=== PATIENT | male | born 1975 | race Caucasian/White ===

== ENCOUNTER 2025-06-01 11:52 | Outpatient (CLI) | payer BC, SELFPAY ==
[2025-06-01 12:38] VITALS: BP 94/57; PULSE 97; RESP 18; TEMP 35.9; O2SAT 99; BMI 18.1
[2025-06-01 13:12] VITALS: BP 89/67; PULSE 91; RESP 18; TEMP 36; O2SAT 100
[2025-06-01 14:12] VITALS: BP 77/53; PULSE 85; RESP 16; TEMP 36.2; O2SAT 97
[2025-06-01 15:01] VITALS: BP 105/67; PULSE 85; RESP 18; TEMP 36.8; O2SAT 99
== END 2025-06-01 23:59 | disposition home or self-care (01) ==
LOC: MEDOUTP 12:00
PROVIDERS: Referring Provider Internal Medicine Hematology & Oncology; Visit Provider Internal Medicine Hematology & Oncology
DX: D64.81 Anemia due to antineoplastic chemotherapy (principal); T45.1X5A Adverse effect of antineoplastic and immunosuppressive drugs, initial encounter
CPT/HCPCS: 36430; 86850; 86900; 86901; 86920; P9016; A4216